=== PATIENT | male | born 1985 | race Caucasian/White ===

== ENCOUNTER 2025-07-03 12:14 | Emergency (ER) | payer OTHER ==
[2025-07-03 13:08] LABS: #Basophils Less than 0.03 10x3/uL (0.0-0.2); #Eosinophils 0.18 10x3/uL (0.0-0.5); #Monocytes 0.32 10x3/uL (0.0-1.1); #Neutrophils 4.81 10x3/uL (1.5-8.4); %Basophils 0.3 % (0.0-2.0); %Eosinophils 2.6 % (0.0-6.0); %Lymphocytes 23.5 % (18.0-47.0); %Monocytes 4.6 % (0.0-10.0); %Neutrophils 68.7 % (40.0-75.0); Hematocrit 42.0 % (38.8-50.0); Hemoglobin 14.0 g/dL (13.5-17.5); Mean Corpuscular Hemoglobin 29.7 pg (27.0-33.0); Mean Corpuscular Volume 89.2 fL (81.2-95.1); Platelet Count 210 10x3/uL (150-450); Red Blood Cell (RBC) Count 4.71 10x6/uL (4.32-5.72); White Blood Cell (WBC) Count 6.99 10x3/uL (3.5-10.5)
[2025-07-03 13:22] LABS: ALT (SGPT) 55 U/L (Less than 45); AST (SGOT) 37 U/L (11-34); Albumin 4.3 g/dL (3.1-4.5); Alkaline Phosphatase 75 U/L (40-110); Anion Gap 13 mmol/L (10-20); BUN (Urea Nitrogen) 12 mg/dL (8.9-20.6); Bilirubin, Total 0.3 mg/dL (0.3-1.2); Calc. Creatinine Clearance 0 mL/min (70-130); Calcium 8.8 mg/dL (7.8-10.44); Carbon Dioxide 24 mmol/L (22-29); Chloride 107 mmol/L (98-107); Globulin 3.1 g/dL (2.4-3.5); Glucose 88 mg/dL (70-105); Potassium 4.2 mmol/L (3.5-5.1); Sodium 140 mmol/L (136-145)
[2025-07-03 13:23] LABS: Acetaminophen Less than 10 mcg/mL (Less than 10); Lipase 37 U/L (8-78); Magnesium 2.1 mg/dL (1.6-2.6); Salicylate Less than 8.0 mg/dL (Less than 8.0)
[2025-07-03 13:26] LABS: Troponin I Less than 0.010 ng/mL (< 0.028)
[2025-07-03 14:06] LABS: Cocaine Metabolite Screen Negative (Negative); THC/Cannabinoid Screen Negative (Negative); Tricyclic Screen Negative (Negative)
== END 2025-07-03 14:54 | disposition home or self-care (01) ==
LOC: CSHERS 12:14
DX: R53.1 Weakness (principal); R29.700 NIHSS score 0; I25.2 Old myocardial infarction; F17.290 Nicotine dependence, other tobacco product, uncomplicated
CPT/HCPCS: 70450; 80053; 80306; 80307; 83690; 83735; 84484; 85025; 93005